=== PATIENT | female | born 1995 | race American Indian/Alaskan Native ===

== ENCOUNTER 2021-08-31 05:40 | Emergency (ER) | payer OTHER ==
--- NOTE | 2021-08-31 06:12 | XRay Report ---
CHEST 1 VIEW 08/31/2021 6:02 AM INDICATION / CLINICAL INFORMATION: CP. COMPARISON: None available. FINDINGS: SUPPORT DEVICES: None. HEART / MEDIASTINUM: No significant abnormality. LUNGS / PLEURA: No significant pulmonary or pleural abnormality. No pneumothorax. ADDITIONAL FINDINGS: No significant additional findings. IMPRESSION: 1. No acute findings. Signer Name: Ulices Magana DO Signed: 08/31/2021 6:07 AM Workstation Name: [id number]
--- NOTE | 2021-08-31 07:39 | Emergency Department Report ---
ED General Adult HPI - General Chief complaint: Dyspnea/Respdistress Stated complaint: TANIA Time Seen by Provider: 08/31/21 07:21 Source: patient Mode of arrival: Ambulatory Limitations: No Limitations - History of Present Illness Initial comments: 25-year-old female with a history of pneumonia in the past, but no other significant past medical history presents to the ER today with complaints of URI symptoms/cough/shortness of breath/positive Covid. Patient states that she started not feeling well last week with generalized fatigue and weakness. She decided to take a Covid test last week and it was positive. She states that 2 days ago she started with URI symptoms, productive cough and yesterday started with shortness of breath and wheezing. She denies any fever or chills. She denies any sore throat. She denies any calf pain or lower extremity swelling. She reports no GI or symptoms. She states that she has not taken a COVID-19 vaccine. She does not smoke. She states that she does not take any medications on a regular basis. She denies any recent travel. She denies any known history of heart disease or any history of PE or DVT. MD Complaint: SOB/URI symptoms/+COVID -: days(s) - Related Data Previous Rx's Medication Instructions Recorded Last Taken Type Albuterol Mdi (or & Nicu Only) 2 puff IH QID PRN #8.5 gram 08/31/21 Unknown Rx [ProAir HFA Inhaler] Benzonatate [Tessalon Perles] 100 mg PO Q8HR PRN #30 capsule 08/31/21 Unknown Rx Ferrous Sulfate [Ferrous Sulfate 324 mg PO DAILY #60 tablet. 08/31/21 Unknown Rx 324 MG] methylPREDNISolone [Medrol 4MG 4 mg PO DAILY #1 tab.ds.pk 08/31/21 Unknown Rx DOSEPAK (21 tabs)] Allergies Allergy/AdvReac Type Severity Reaction Status Date / Time No Known Allergies Allergy Unverified 08/31/21 05:43 ED Review of Systems ROS: Stated complaint: TANIA Other details as noted in HPI Comment: All other systems reviewed and negative Constitutional: denies: chills, fever Eyes: denies: eye pain, eye discharge, vision change ENT: congestion Respiratory: cough, shortness of breath, wheezing Cardiovascular: denies: chest pain, palpitations, dyspnea on exertion, edema, syncope, paroxysmal nocturnal dyspnea Gastrointestinal: denies: abdominal pain, nausea, diarrhea, constipation, hematemesis, melena, hematochezia Genitourinary: denies: urgency, dysuria, frequency, hematuria, discharge, abnormal menses, dyspareunia Musculoskeletal: denies: joint swelling, arthralgia Skin: denies: rash, lesions, change in color, change in hair/nails, pruritus Neurological: denies: headache, weakness, numbness, paresthesias, confusion, abnormal gait, vertigo Psychiatric: denies: anxiety, depression, auditory hallucinations, visual hallucinations, homicidal thoughts, suicidal thoughts Hematological/Lymphatic: denies: easy bleeding, easy bruising, swollen glands ED Past Medical Hx - Past Medical History Previous Medical History?: No - Surgical History Past Surgical History?: No - Medications Home Medications: Home Medications Medication Instructions Recorded Confirmed Last Taken Type Albuterol Mdi (or & Nicu Only) 2 puff IH QID PRN #8.5 gram 08/31/21 Unknown Rx [ProAir HFA Inhaler] Benzonatate [Tessalon Perles] 100 mg PO Q8HR PRN #30 capsule 08/31/21 Unknown Rx Ferrous Sulfate [Ferrous Sulfate 324 mg PO DAILY #60 tablet.dr 08/31/21 Unknown Rx 324 MG] methylPREDNISolone [Medrol 4MG 4 mg PO DAILY #1 tab.ds.pk 08/31/21 Unknown Rx DOSEPAK (21 tabs)] ED Physical Exam - General Limitations: No Limitations General appearance: alert, in no apparent distress, obese - Head Head exam: Present: atraumatic, normocephalic, normal inspection - Eye Eye exam: Present: normal appearance, PERRL, EOMI Pupils: Present: normal accommodation - Neck Neck exam: Present: normal inspection, full ROM. Absent: meningismus - Respiratory Respiratory exam: Present: normal lung sounds bilaterally, wheezes. Absent: respiratory distress, rhonchi, stridor - Cardiovascular Cardiovascular Exam: Present: normal rhythm, tachycardia, normal heart sounds - GI/Abdominal GI/Abdominal exam: Present: soft. Absent: distended, tenderness, guarding, isabell ound - Neurological Exam Neurological exam: Present: alert, oriented X3, CN II-XII intact, normal gait - Psychiatric Psychiatric exam: Present: normal affect, normal mood - Skin Skin exam: Present: intact ED Course Vital Signs 08/31/21 08/31/21 08/31/21 05:43 10:15 11:49 Temperature 98.0 F 98.3 F Pulse Rate 116 H 100 H Pulse Rate [ 94 H Anterior Bilateral] Respiratory 18 18 Rate Respiratory 18 Rate [Anterior Bilateral] Blood Pressure 159/86 Blood Pressure 112/65 [Right] O2 Sat by Pulse 99 100 Oximetry ED Medical Decision Making - Lab Data Result diagrams: 08/31/21 08:44 08/31/21 08:44 - EKG Data EKG shows normal: sinus rhythm Rate: tachycardia (105) - Radiology Data Radiology results: report reviewed Patient: SANDI DE LA VEGA MR#: [id number] : 1995 Acct:[id number] Age/Sex: 25 / F ADM Date: 08/31/21 Loc: ED Attending Dr: Ordering Physician: ED MD JL Date of Service: 08/31/21 Procedure(s): XR chest 1V ap Accession Number(s): [id number] cc: ED DOCMD Fluoro Time In Minutes: CHEST 1 VIEW 08/31/2021 6:02 AM INDICATION / CLINICAL INFORMATION: CP. COMPARISON: None available. FINDINGS: SUPPORT DEVICES: None. HEART / MEDIASTINUM: No significant abnormality. LUNGS / PLEURA: No significant pulmonary or pleural abnormality. No pneumothorax. ADDITIONAL FINDINGS: No significant additional findings. IMPRESSION: 1. No acute findings. Signer Name: Ulices Magana DO Signed: 08/31/2021 6:07 AM Workstation Name: [id number] Transcribed By: SABRINA Dictated By: ULICES MAGANA DO Electronically Authenticated By: ULICES MAGANA DO Signed Date/Time: 08/31/21606 DD/ 6 TD/TT: - Medical Decision Making 25-year-old female with a history of pneumonia in the past, but no other significant past medical history presents to the ER today with complaints of URI symptoms/cough/shortness of breath/positive Covid. Patient states that she started not feeling well last week with generalized fatigue and weakness. She decided to take a Covid test last week and it was positive. She states that 2 days ago she started with URI symptoms, productive cough and yesterday started with shortness of breath and wheezing. She denies any fever or chills. She denies any sore throat. She denies any calf pain or lower extremity swelling. She reports no GI or symptoms. She states that she has not taken a COVID-19 vaccine. She does not smoke. She states that she does not take any medications on a regular basis. She denies any recent travel. She denies any known history of heart disease or any history of PE or DVT. Patient chest x-ray shows nothing acute. Labs were reviewed - She was noted to be anemic, rest of the lab showed no other significant abnormalities including a negative D-dimer. EKG showed mild sinus tach but otherwise unremarkable. Patient currently resting comfortably. She appears to be feeling better after meds and treatment. She is currently nontoxic and not significantly ill- appearing. She is not in any significant distress. Repeat vital signs shows improvement of her tachycardia, she is not hypoxic nor is she tachypneic and she is afebrile. Discussed all results with patient. She does admit to have a history of anemia secondary to heavy vaginal bleeding. She is currently taking [id number] iron supplements. She has not had any [facility] evaluation in 2 years. Recommend that she follows back up with OB, she will be started on prescription iron supplements and and also suspect that her symptoms are also related to COVID-19 which she was diagnosed with last week. Patient will be treated for her symptoms. Recommend that she follows up closely with her PCP. She understands to return to the ER if worse. Critical care attestation.: If time is entered above; I have spent that time in minutes in the direct care of this critically ill patient, excluding procedure time. ED Disposition Clinical Impression: Viral illness, Acute bronchitis, Anemia, SARS-CoV-2 positive Disposition: 01 HOME / SELF CARE / HOMELESS Is pt being admited?: No Does the pt Need Aspirin: No Condition: Stable Instructions: Viral Respiratory Infection, Acute Bronchitis, Adult, Acute Bronchitis (ED) Additional Instructions: Recommend that you take the ferrous sulfate as prescribed to help with your anemia. Use albuterol inhaler to help with any shortness of breath or wheezing and take the Medrol Dosepak as well as the Tessalon Perles to help with coughing. You can also take Zyrtec, or Claritin or Em from [id number] to help with your URI symptoms. You will need to quarantine for 5 days if you are positive. You can take Tylenol and ibuprofen as needed fo r any fever or pain. Drink lots of fluids. Take a multivitamin containing vitamin C, D and zinc I do recommend following up with your [facility] for further evaluation of your abnormal vaginal bleeding and your anemia. Follow-up with your PCP. Return to the ER if your symptoms worsens in any way. Prescriptions: Ferrous Sulfate [Ferrous Sulfate 324 MG] 324 mg PO DAILY #60 tablet.dr methylPREDNISolone [Medrol 4MG DOSEPAK (21 tabs)] 4 mg PO DAILY #1 tab.ds.pk Albuterol Mdi (or & Nicu Only) [ProAir HFA Inhaler] 2 puff IH QID PRN #8.5 gram PRN Reason: Shortness Of Breath Benzonatate [Tessalon Perles] 100 mg PO Q8HR PRN #30 capsule PRN Reason: Cough Referrals: [facility] [Primary Care Provider] - 3-5 Days [facility] [Provider Group] - 3-5 Days [facility] [Provider Group] - 3-5 Days Forms: Work/School Release Form(ED) Time of Disposition: 11:30
[2021-08-31] MEDS ORDERED: IPRATROPIUM/ALBUTEROL SULFATE 3 ML AMPUL.NEB IH ONE (07:48)
[2021-08-31] MEDS ORDERED: SODIUM CHLORIDE 0.9% 1000 ML 1,000 ML IV ONE (07:48)
[2021-08-31] MEDS ORDERED: methylPREDNISolone Sod Succinate 125 MG/2 ML INJ IV ONE (07:48)
[2021-08-31 09:00] LABS: Basophils # (Auto) 0.1 K/mm3 (0.0-0.1); Basophils % (Auto) 0.5 % (0.0-1.8); Eosinophils # (Auto) 0.8 K/mm3 (0.0-0.4); Eosinophils % (Auto) 6.8 % (0.0-4.3); Lymphocytes # (Auto) 2.7 K/mm3 (1.2-5.4); Lymphocytes % (Auto) 22.7 % (13.4-35.0); Mean Corpuscular HGB Conc 28 % (30-34); Monocytes # (Auto) 1.4 K/mm3 (0.0-0.8); Monocytes % (Auto) 11.7 % (0.0-7.3); Platelet Count 360 K/mm3 (140-440); Red Blood Count 4.72 M/mm3 (3.65-5.03)
[2021-08-31 09:02] LABS: Hemoglobin 8.2 gm/dl (10.1-14.3); Mean Corpuscular Volume 62 fl (79-97); Red Cell Distribution Width 21.9 % (13.2-15.2)
[2021-08-31 09:21] LABS: Alanine Aminotransferase 9 units/L (7-56); Albumin 3.6 g/dL (3.9-5); Blood Urea Nitrogen 12 mg/dL (7-17); Calcium 8.6 mg/dL (8.4-10.2); Hemolysis Index 3
[2021-08-31 09:34] LABS: BUN/Creatinine Ratio 17
[2021-08-31 11:50] VITALS: BP 112/65
--- NOTE | 2021-08-31 11:53 | Electrocardiograph Report ---
[facility] Test Date: 2021-08-31 Test Time: 05:48:57 Pat Name: SANDI DE LA VEGA Department: ED Room: Gender: F Senior Payroll Manager: KEE : 1995 Requested By: ED DOC Order Number: [id number] Reading MD: Enoch Machuca Measurements Intervals [place] Rate: 105 P: 69 NE: 186 QRS: 53 QRSD: 83 T: 7 QT: 343 QTc: 454 Interpretive Statements Sinus tachycardia No previous ECG available for comparison Electronically Signed On 08-31-2021 11:53:27 EST by Enoch Machuca
== END 2021-08-31 11:50 | disposition home or self-care (01) ==
LOC: ED 05:40
DX: U07.1 COVID-19 (principal); B34.9 Viral infection, unspecified; J20.9 Acute bronchitis, unspecified; D64.9 Anemia, unspecified; Z79.899 Other long term (current) drug therapy
CPT/HCPCS: 36415; 71045; 80053; 85025; 85379; 93005; 94640; 94644; 99284